=== PATIENT | male | born 1970 | race Caucasian/White ===

== ENCOUNTER 2018-11-10 20:21 | Emergency (ER) | payer BC ==
[~2018-11-10] VITALS: Ht 188 cm; Wt 109.1 kg
[~2018-11-10 20:21] MED LIST: DULCOLAX5 MG PO; FLAGYL500 MG PO; HYDROCODONE-APA1 TAB PO; LEVOFLOXACIN500 MG PO; XANAX0.25 MG PO; ZOFRAN ODT4 MG/UDTAB PO
[2018-11-10 20:42] VITALS: Ht 188 cm; Wt 109.1 kg
[2018-11-10 21:00] LABS: HEMATOCRIT 50.2 % (42.0-54.0); HEMOGLOBIN 17.7 g/dL (13.5-17.5); MCH 30.6 pg (26.0-34.0); MCHC 35.3 g/dL (31.0-37.0); MCV 86.7 fL (80.0-100.0); MEAN PLATELET VOLUME 9.4 fL (7.4-10.4); PLATELET COUNT 262 10x3/uL (130-400); RBC 5.79 10x6/uL (4.20-6.10); RDW 13.2 % (11.5-14.5)
[2018-11-10 21:18] LABS: ALBUMIN 3.9 g/dL (3.4-5.0); ALKALINE PHOSPHATASE 71 U/L (46-116); ALT (SGPT) 57 U/L (10-68); AMYLASE - SERUM 19 U/L (25-115); BILIRUBIN - TOTAL 0.46 mg/dL (0.2-1.3); CALC OSMOLALITY 286 mosm/kg (275-300); CHLORIDE - SERUM 106 mmol/L (98-107); CREATININE - SERUM 1.2 mg/dL (0.6-1.3); GLUCOSE 107 mg/dL (74-106); LIPASE 107 U/L (73-393); POTASSIUM - SERUM 4.5 mmol/L (3.5-5.1); PROTEIN - SERUM 7.9 g/dL (6.4-8.2); SODIUM 143 mmol/L (136-145); TROPONIN-I < 0.017 ng/mL (0.000-0.060); UREA NITROGEN 19 mg/dL (7-18); eGFR NON AFRICAN AMERICAN 69 mL/min (90-120)
[2018-11-10 21:22] LABS: EOSINOPHILS 1 % (0-7); LYMPHOCYTES 10 % (15-50); MONOCYTES 3 % (2-11); NEUTROPHILS 85 % (40-80); PLATELET ESTIMATE NORMAL
[2018-11-10 21:33] LABS: CALCIUM 8.9 mg/dL (8.5-10.1)
[2018-11-10 22:58] LABS: APPEARANCE CLEAR (CLEAR); COLOR YELLOW (YELLOW); GLUCOSE NEGATIVE (NEGATIVE); KETONE NEGATIVE (NEGATIVE); NITRITE NEGATIVE (NEGATIVE); PROTEIN TRACE mg/dL (NEGATIVE); UROBILINOGEN NORMAL (NORMAL)
[2018-11-10 22:59] LABS: BILIRUBIN NEGATIVE (NEGATIVE)
[2018-11-10 23:00] LABS: BACTERIA FEW /hpf (NONE SEEN); EPITHELIAL CELLS 0-5 /hpf (0-5); RED CELLS - URINE 0-5 /hpf (0-5); WHITE CELLS - URINE OCC /hpf (0-5)
[2018-11-11 00:55] VITALS: BP 117/76
== END 2018-11-11 00:58 | disposition home or self-care (01) ==
LOC: D.ER 20:21
PROVIDERS: Family Medicine
DX: K52.9 Noninfective gastroenteritis and colitis, unspecified (principal)